=== PATIENT | male | born 1970 | race Caucasian/White ===

== ENCOUNTER 2021-08-05 13:42 | Emergency (ER) | payer OTHER | END 2021-08-05 13:43 | disposition home or self-care (01) | LOC: LB.ED 13:42 | DX: L50.9 Urticaria, unspecified (principal) | CPT/HCPCS: 99281; 99282 ==

== ENCOUNTER 2021-08-06 11:57 | Emergency (ER) | payer OTHER ==
[2021-08-06] MEDS ORDERED: methylPREDNISolone Sodium Succinate 125 MG/2 ML SDV IM ONE (12:21)
[2021-08-06] MEDS ORDERED: methylPREDNISolone Sodium Succinate 125 MG/2 ML SDV ONE (12:33)
== END 2021-08-06 12:55 | disposition home or self-care (01) ==
LOC: LB.ED 11:57
DX: L24.0 Irritant contact dermatitis due to detergents (principal)
CPT/HCPCS: 96372; 99282; J2930